=== PATIENT | female | born 1995 | race Two or more races ===

== ENCOUNTER 2018-06-12 10:35 | Emergency (ER) | payer OTHER ==
[2018-06-12] MEDS ORDERED: ONDANSETRON 4 MG/2 ML VIAL IVP ONE (10:52)
--- NOTE | 2018-06-12 10:56 | EDPHY ---
General Time Seen by Provider: 06/12/18 10:44 Narrative: CLINICAL IMPRESSION: Gastroenteritis, nausea and vomiting ASSESSMENT/PLAN: 23-year-old otherwise healthy female presents to the emergency department with generalized abdominal discomfort associated with persistent nausea and nonbilious nonbloody vomiting since 6:00 a.m. This morning. Patient is actively vomiting on arrival but has stable vital signs. She required multiple repeat doses of antiemetics for adequate nausea control. She was found to have a significant leukocytosis of 20, no renal insufficiency, significant electrolyte imbalance, metabolic disturbance or sign of severe dehydration. On reassessments patient continued to have significant abdominal pain and began requesting pain medication for this. Given this and a significant leukocytosis , I elected to perform CT scan which was read by Radiology as probable gastroenteritis, no evidence of acute appendicitis, diverticulitis, cholecystitis, perforation, or abscess. Patient received 2 L IV fluids and pain medication with improvement in her symptoms. She was able to tolerate water without difficulty. I recommend PCP follow-up in 24 hr for recheck. Low threshold for returning to ED sooner for worsening symptoms as outlined in discharge papers. DIFFERENTIAL DX: Abdominal pain includes but not limited to urinary tract infection, pyelonephritis, infection, ectopic , salpingitis, TOA, ovarian torsion, ovarian cyst, endometriosis, uterine fibroids, acute appendicitis, acute diverticulitis, small-bowel obstruction, constipation ED PROCEDURES: See lab and/or imaging results below ED COURSE: 10:50 a.m.:. Patient seen by myself, very nauseous, actively vomiting. Abdomen soft with no focal peritoneal findings. Vital signs stable. Plan for IV, fluid bolus, labs, serum test 12:00 P.M.: Patient reassessed. Labs show significant leukocytosis of 20. Patient continues to be nauseous with vomiting despite Zofran and Phenergan., generalized abdominal pain, somewhat resistant to exam. Will add lipase and probable CT scan pending test. 12:50 P.M.: CT discussed with Dr. Kulkarni. Mild gastric wall inflammation, no acute appendicitis, free air, perforation. Small left 1 cm ovarian cyst. Otherwise unremarkable. Patient reassessed at 1:30 p.m.: Feeling much better, taking water, plan to discharge home with oral Zofran. CHIEF COMPLAINT: [ Abdominal pain, nausea, vomiting, diarrhea HPI: 23-year-old otherwise healthy female presents to the emergency department complaints of generalized abdominal pain, nausea, vomiting, nonbloody diarrhea beginning at 6:00 a.m. This morning. Patient ate shrimp last night but no one else she with his ill. She was exposed to a viral GI illness this weekend. She denies alcohol use recently. She traveled to the [place] over 2 weeks ago. No reported fever or chills. No bloody stools or bloody emesis. She reports "this feels just like gastroenteritis like I have had the past". She does not smoke heavy amounts of marijuana. She does not take prescription medication. She is on control and denies . PAST MEDICAL HISTORY: None reported See nurse/triage notes for additional history if applicable Pertinent Past Surgical History: None reported Family History: Noncontributory Social History: Otherwise healthy, nonsmoker REVIEW OF SYSTEMS: All other systems negative Constitutional: No fever, no chills, positive for appetite change. Cardiovascular: No chest pain, no palpitations. Respiratory: No cough, no shortness of breath. Gastrointestinal: Positive for generalized abdominal pain, vomiting, diarrhea Genitourinary: No hematuria, dysuria, flank pain, pelvic pain Musculoskeletal: No back pain, joint swelling, joint pain, myalgias. Skin: No rashes, color change. Neurological: No headache, dizziness, positive for weakness. PHYSICAL EXAM: General Appearance: Alert, oriented, appropriate, cooperative, pale, actively vomiting, appears uncomfortable VSS, no hypoxia. Respiratory: There are no retractions, lungs are clear to auscultation. Cardiac: Regular rate and rhythm, no murmurs or gallops. Gastrointestinal: Abdomen is soft, generalized discomfort throughout, bowel sounds normal, no masses/hernia, no rigidity, guarding or focal peritoneal findings. Neurological: Alert and oriented x 3, CN 2-12 grossly intact Skin: Warm, dry, no rashes, no nodules on palpation. Musculoskeletal: Extremities are symmetrical, full range of motion, no tenderness, deformity, swelling, or erythema. MEDICAL DECISION MAKING: Patient was seen independently. Secondary supervising physician at time of evaluation was Dr. Alford. Diagnosis: Abdominal pain, nausea, vomiting. New, requires workup Summary: See Assessment and Plan for summary of ED visit Clinical lab tests: ordered / reviewed. Independent visualization of images, tracing, or specimens: Yes. Decision to obtain medical records or history from someone other than the patient: No Review / Summarize previous medical records: None available Discussed patient with another provider: Radiology Patient Progress: Improved, stable for discharge. - Diagnostics Imaging Results: Imaging Impressions Abdomen CT 06/12/18 12:22 Impression: 1. Query mild gastroenteritis. 2. Normal appearance to the appendix. 3. There are 2 adjacent simple cyst in lower pole the right kidney. 4. There is a 1.8 cm left ovarian follicular cyst with a small amount of free fluid in the pelvic cul-de-sac. 5. Mild pelvic venous congestion. Findings were discussed with Micah Cabezas PA-C at 13:26, on 06/12/2018. - History Smoking Status: Never smoked - Objective Vital Signs: Initial Vital Signs Temperature (C) 37.1 C 06/12/18 10:39 Heart Rate 89 06/12/18 10:39 Respiratory Rate 16 06/12/18 10:39 Blood Pressure 121/82 H 06/12/18 10:39 O2 Sat (%) 100 06/12/18 10:39 O2 Delivery Mode Room Air Allergies/Adverse Reactions: No Known Allergies Allergy (Unverified 06/12/18 10:39) Home Medications: Medication Instructions Recorded Ondansetron Odt [Zofran Odt] 4 mg PO Q4PRN PRN #7 tab 06/12/18 Laboratory Results: Laboratory Results 06/12/18 10:57 06/12/18 10:57 03/18/19 03/18/19 03/18/19 10:57 10:57 10:57 WBC 20.49 10^3/uL H 10^3/uL (3.80-9.50) RBC 4.67 10^6/uL 10^6/uL (4.18-5.33) Hgb 14.4 g/dL g/dL (12.6-16.3) Hct 41.8 % % (38.0-47.0) MCV 89.5 fL fL (81.5-99.8) MCH 30.8 pg pg (27.9-34.1) MCHC 34.4 g/dL g/dL (32.4-36.7) RDW 12.7 % % (11.5-15.2) Plt Count 376 10^3/uL 10^3/uL (150-400) MPV 9.6 fL fL (8.7-11.7) Neut % (Auto) 87.1 % H % (39.3-74.2) Lymph % (Auto) 6.7 % L % (15.0-45.0) [place] % (Auto) 4.5 % % (4.5-13.0) Eos % (Auto) 1.0 % % (0.6-7.6) Baso % (Auto) 0.3 % % (0.3-1.7) Nucleat RBC Rel Count 0.0 % % (0.0-0.2) Absolute Neuts (auto) 17.85 10^3/uL H 10^3/uL (1.70-6.50) Absolute Lymphs (auto) 1.37 10^3/uL 10^3/uL (1.00-3.00) Absolute Monos (auto) 0.92 10^3/uL H 10^3/uL (0.30-0.80) Absolute Eos (auto) 0.20 10^3/uL 10^3/uL (0.03-0.40) Absolute Basos (auto) 0.06 10^3/uL 10^3/uL (0.02-0.10) Absolute Nucleated RBC 0.00 10^3/uL 10^3/uL (0-0.01) Immature Gran % 0.4 % % (0.0-1.1) Immature Gran # 0.09 10^3/uL 10^3/uL (0.00-0.10) Sodium 137 mEq/L mEq/L (135-145) Potassium 3.5 mEq/L mEq/L (3.5-5.2) Chloride 103 mEq/L mEq/L (97-110) Carbon Dioxide 21 mEq/l L mEq/l (22-31) Anion Gap 13 mEq/L mEq/L (6-14) BUN 12 mg/dL mg/dL (7-23) Creatinine 0.7 mg/dL mg/dL (0.6-1.0) Estimated GFR > 60 Glucose 118 mg/dL H mg/dL (70-100) Calcium 9.8 mg/dL mg/dL (8.5-10.4) Total Bilirubin 1.6 mg/dL H mg/dL (0.1-1.4) Conjugated Bilirubin 0.3 mg/dL mg/dL (0.0-0.5) Unconjugated Bilirubin 1.3 mg/dL H mg/dL (0.0-1.1) AST 23 IU/L IU/L (14-46) ALT 24 IU/L IU/L (9-52) Alkaline Phosphatase 73 IU/L IU/L (38-126) Total Protein 7.8 g/dL g/dL (6.3-8.2) Albumin 4.8 g/dL g/dL (3.5-5.0) Lipase 61 IU/L IU/L (23-300) Beta HCG, Quant < 2.39 mIU/mL mIU/mL (0.00-4.83) Medications Given: Discontinued Medications Fentanyl (Sublimaze) 50 mcg IVP EDNOW ONE Stop: 06/12/18 12:14 Last Admin: 06/12/18 12:34 Dose: 50 mcg Sodium Chloride (Ns) 1,000 mls @ 0 mls/hr IV EDNOW ONE; Wide Open PRN Reason: Protocol Stop: 06/12/18 10:53 Last Admin: 06/12/18 12:24 Dose: 1,000 mls Sodium Chloride (Ns) 1,000 mls @ 0 mls/hr IV EDNOW ONE; Wide Open PRN Reason: Protocol Stop: 06/12/18 12:06 Last Admin: 06/12/18 12:34 Dose: 1,000 mls Ondansetron HCl (Zofran) 4 mg IVP EDNOW ONE Stop: 06/12/18 10:53 Last Admin: 06/12/18 11:02 Dose: 4 mg Promethazine HCl (Phenergan) 12.5 mg IVP ONCE ONE Stop: 06/12/18 11:28 Last Admin: 06/12/18 11:37 Dose: 12.5 mg Departure - Departure Disposition: Home, Routine, Self-Care Clinical Impression: Viral gastroenteritis Condition: Fair Instructions: Gastroenteritis (ED) Additional Instructions: DISCHARGE INSTRUCTIONS FROM YOUR DOCTOR Thank you for visiting our emergency department today. You were treated by a physician miller head assistant wet process today and your case was reviewed with our ED Attending physician. Please keep in mind that discharge from the emergency department does not mean that there is nothing wrong - it simply means that we have not identified an emergency condition that requires further evaluation or treatment in the hospital. You should always plan to follow up with primary care for re- evaluation of your condition in the next 2-3 days. If you have been referred to a specialist, please call as soon as possible (today or tomorrow) to schedule your follow up appointment at the appropriate time. LABORATORY EVALUATION SHOWED SOME ELEVATION IN YOUR INFECTION FIGHTING COUNT. NO SIGNIFICANT ELECTROLYTE IMBALANCE OR RENAL INSUFFICIENCY. CT SCAN DID NOT SHOW ANY ACUTE FINDINGS OR SURGICAL INDICATIONS. YOU HAVE A SMALL LEFT OVARIAN CYST. ZOFRAN WAS PRESCRIBED FOR NAUSEA AT HOME. PLEASE STAY HYDRATED AND STICK TO FLUID ONLY DIET, ADVANCE TO BLAND FOODS TOLERATED. FOLLOW UP WITH PRIMARY CARE IN THE NEXT 1-2 DAYS, IF YOU DO NOT HAVE 1 A REFERRAL WAS GIVEN. RETURN TO ED FOR WORSENING ABDOMINAL PAIN, PERSISTENT NAUSEA VOMITING, BLOODY STOOLS, HIGH FEVER OR ANY OTHER CONCERN. People present with illnesses and injuries in different ways, and it is always possible that we have missed something. You may always return for re-evaluation if symptoms worsen or if they are not improving or if you develop new/different symptoms. Again, thank you for choosing our emergency department. We hope that you feel better. Referrals: Patient,NotPresent [Unknown] - As per Instructions Alicia Leung MD [Medical Doctor] - 2-3 days without fail Prescriptions: Ondansetron Odt [Zofran Odt] 4 mg PO Q4PRN PRN #7 tab PRN Reason: Nausea/Vomiting, Can'T Take Po
[2018-06-12 11:04] LABS: PLATELET COUNT 376 10^3/uL (150-400)
[2018-06-12] MEDS: NS 1,000 ML IV ONE ×2 (11:05→12:24)
[2018-06-12] MEDS ORDERED: PROMETHAZINE HCL 25 MG/ML INJ IVP ONE (11:27)
[2018-06-12] MEDS ORDERED: PROMETHAZINE HCL 25 MG/ML INJ ONE (11:28)
[2018-06-12] MEDS ORDERED: NS 1,000 ML IV ONE (12:05)
[2018-06-12] MEDS ORDERED: fentaNYL 100 MCG/2 ML INJ IVP ONE (12:13)
[2018-06-12] MEDS ORDERED: IOPAMIDOL (ISOVUE-300) 100 ML BTL ONE (12:28)
[2018-06-12 13:57] VITALS: BP 118/75
== END 2018-06-12 13:56 | disposition home or self-care (01) ==
DX: K52.9 Noninfective gastroenteritis and colitis, unspecified (principal); E86.9 Volume depletion, unspecified
CPT/HCPCS: 96374; J2405; J2550; J3010; Q9967